=== PATIENT | female | born 1985 | race Caucasian/White ===

== ENCOUNTER 2016-09-20 01:33 | Inpatient (IN) | payer BC ==
[~2016-09-20] VITALS: Ht 165.1 cm; Wt 80.5 kg
[2016-09-20] VITALS (18 sets, daily range): BP systolic 107–135; BP diastolic 52–84; PULSE 71–95; TEMP 97.3–98.5
[~2016-09-20 01:33] MED LIST: MOTRIN 600600 MG/TAB PO; PERCOCET 325 MG1 TA2 PO; PRENATAL1 TA1 PO; TRANDATE 100MG100 MG PO
[2016-09-20 03:14] LABS: BASO % 0.3 % (0.0-2.0); EOS # 0.1 (0.0-0.7); EOS % 0.5 % (0-4.0); GRAN # 8.7 (1.4-6.5); GRAN % 73.8 % (42.2-75.2); HEMATOCRIT 36.7 % (37.0-47.0); HEMOGLOBIN 12.6 g/dl (12.5-16.0); LYMPH % 17.1 % (20.0-51.0); MEAN CELL VOLUME 94 fl (80.0-100.0); MEAN CORPUSCULAR HEMOGLOBIN 32 pg (27.0-31.0); MEAN CORPUSCULAR HGB CONC 34 g/dl (33.0-37.0); MEAN PLATELET VOLUME 10.1 fl (7.4-10.4); MONO # 0.8 (0.1-0.6); MONO % 6.9 % (1.7-9.3); PLATELET COUNT 256 K/mm3 (130-400); RED BLOOD COUNT 3.92 M/mm3 (4.10-5.30); REDCELL DISTRIBUTION WIDTH-CV 12.8 % (11.5-14.5); WHITE BLOOD COUNT 11.8 K/mm3 (4.8-10.8)
[2016-09-21 07:26] VITALS: BP 94/62; PULSE 77; TEMP 98.3
[2016-09-21 08:12] LABS: HEMATOCRIT 33.2 % (37.0-47.0); HEMOGLOBIN 10.9 g/dl (12.5-16.0)
[2016-09-21] MEDS ORDERED: IBU600 MG PO (09:54)
[2016-09-21] MEDS ORDERED: PERCOCET 325 MG1 TA2 PO (09:55)
[2016-09-21 16:37] VITALS: BP 11/68; BP 110/68; PULSE 86; TEMP 98.3
[2016-09-21 19:50] VITALS: BP 130/78; PULSE 94; TEMP 98.3
[2016-09-22 08:30] VITALS: BP 117/68; PULSE 118; TEMP 98
== END 2016-09-22 13:35 | disposition home or self-care (01) | DRG 765 ==
LOC: LDRO 01:33 → OB 02:26 → LDR 02:26 → OB 07:00
PROVIDERS: Obstetrics & Gynecology
PROC: 10D00Z1 Extraction of Products of Conception, Low, Open Approach (ICD-10-PCS; principal; 2016-09-20)
DX: O32.1XX0 Maternal care for breech presentation, not applicable or unspecified (principal); O10.92 Unspecified pre-existing hypertension complicating childbirth; Z3A.39 39 weeks gestation of pregnancy; Z37.0 Single live birth
CPT/HCPCS: J0690; J1885; J2175; J2270; J2370; J2405; J2550; J2590; J7120